=== PATIENT | female | born 2000 | race Caucasian/White ===

== ENCOUNTER 2022-08-01 07:55 | Emergency (ER) | payer BC ==
[2022-08-01 08:26] LABS: Pregnancy Test - Urine (BHCG) Negative (Negative); Pregu Control Background? CLEAR/WHITE (CLR/WHITE); Pregu Control Bar Appear? YES (CONTROL BAR)
[2022-08-01 08:30] LABS: Clarity Cloudy (Clear); Leukocyte Trace (Negative); Nitrite Negative (Negative)
[2022-08-01 08:31] LABS: Bilirubin Negative (Negative); Blood, Urine Large (Negative); Glucose, Urine (Dipstick) Negative (Negative); Ketone, Urine Negative (Negative); Protein, Urine (Dipstick) 300 mg/dL (Neg-Trace); Urobilinogen 0.2 mg/dL (Less than 2)
[2022-08-01 08:34] LABS: Bacteria/HPF 2+ HPF (None Seen); Mucous/LPF 2+ LPF (<2+); RBC/HPF Greater than 50 HPF (0-3)
[2022-08-01 09:13] LABS: #Basophils 0.1 thou/uL (0.0-0.2); #Eosinphils 0.1 thou/uL (0.0-0.7); #Lymphocytes 1.2 thou/uL (1.20-3.40); #Monocytes 0.5 thou/uL (0.11-0.59); #Neutrophils 7.5 thou/uL (1.40-6.50); %Basophils 0.7 % (0.0-1.0); %Eosinophils 0.7 % (0.0-10.0); %Monocytes 5.5 % (0.0-4.0); %Neutrophils 80.1 % (31.0-61.0); Hemoglobin 12.9 g/dL (12.0-16.0); Mean Corpuscular HGB CONC 34.5 g/dL (32.0-36.0); Mean Corpuscular Hemoglobin 30.8 pg (25.0-35.0); Mean Corpuscular Volume 89.3 fl (78.0-98.0); Mean Platelet Volume 11.1 fL (7.4-10.4); Platelet Count 258 10x3/uL (130-400); RBC Distribution Width 11.1 % (11.5-14.5); White Blood Cell (WBC) Count 9.4 10x3/uL (4.8-10.8)
[2022-08-01] MEDS ORDERED: Ondansetron PF 4 MG/2 ML Vial ONE (09:22)
[2022-08-01] MEDS ORDERED: Ketorolac Tromethamine 30 MG/ML VIAL ONE (09:22)
[2022-08-01] MEDS ORDERED: Sodium Chloride 0.9% 1,000 ML ONE (09:22)
[2022-08-01 09:31] LABS: ALT (SGPT) 34 U/L (8-55); AST (SGOT) 16 U/L (5-30); Albumin 4.2 g/dL (3.5-5.0); Alkaline Phosphatase 54 U/L (40-100); Anion Gap 15 mmol/L (10-20); BUN (Urea Nitrogen) 12 mg/dL (8.4-21.0); Bilirubin, Total 0.4 mg/dL (0.2-1.2); Calc. Creatinine Clearance 0 mL/min (70-130); Calcium 9.3 mg/dL (7.8-10.44); Carbon Dioxide 22 mmol/L (22-29); Chloride 105 mmol/L (98-107); Estimated GFR 106; Globulin 2.9 g/dL (2.4-3.5); Glucose 150 mg/dL (70-105); Lipase 28 U/L (8-78); Potassium 4.3 mmol/L (3.5-5.1); Protein, Total 7.1 g/dL (6.0-8.3); Sodium 138 mmol/L (136-145)
[2022-08-01] MEDS ORDERED: Sodium Chloride 0.9% 100 ML ONE (10:02)
[2022-08-01] MEDS ORDERED: cefTRIAXone\\ROCEPHIN 1 GM VIAL ONE (10:02)
== END 2022-08-01 10:37 | disposition home or self-care (01) ==
LOC: MADERS 07:55
DX: R10.9 Unspecified abdominal pain (principal); N13.2 Hydronephrosis with renal and ureteral calculous obstruction; N39.0 Urinary tract infection, site not specified
CPT/HCPCS: 36415; 74176; 80053; 81003; 81015; 81025; 83690; 85025; 87086; 96374; 96375; J0696; J1885; J2405; J3490; J7050